=== PATIENT | female | born 1975 | race Caucasian/White ===

== ENCOUNTER 2016-06-26 09:59 | Emergency (ER) | payer MEDICAID ==
[2016-06-26] MEDS ORDERED: methylPREDNISolone SOD SUCC 125 MG/2 ML VIAL IVP ONE (10:10)
[2016-06-26] MEDS ORDERED: FAMOTIDINE 20 MG in NS 100 ML IV ONE (10:10)
--- NOTE | 2016-06-26 11:02 | EDPHY ---
H & P HPI/ROS: CHIEF COMPLAINT: Swelling of the eyes, difficulty swallowing HISTORY OF PRESENT ILLNESS: Patient has had 1 week history of redness of the eyes, watering of the eyes. Symptoms are [id number]. They were persistent. They were improved with claritin and [id number] anti- inflammatories. This change last night as they symptoms began to worsen, and this morning she noted difficulty swallowing. She had no shortness of breath. She noted no swelling of the lips, mouth or tongue. No chest pain or shortness of breath. No rash anywhere on her body. The redness of the eyes has worsened overnight since yesterday. She has no known new contacts or substances. She has been on lisinopril for 6 months without complication. No new soaps, detergents, makeup, or new medications. No other associated complaints or modifying factors. REVIEW OF SYSTEMS: Ten systems reviewed and are negative unless otherwise noted in the HPI PERTINENT MEDICAL HISTORY: EXAMINATION General Appearance: Alert, no distress Head: normocephalic, atraumatic Eyes: Pupils equal and round, no conjunctival pallor or injection. There is erythema surrounding the eyes. Mild edema surrounding the eyes. ENT, Mouth: Mucous membranes moist. Uvula is midline. There is no erythema of the mouth. There is no edema of the posterior pharynx, lips, tongue or floor of the mouth. The airway is widely patent. Neck: Normal inspection, supple, non-tender. No edema. Trachea is midline. Respiratory: Lungs are clear to auscultation. No wheezing, rhonchi or crackles. Cardiovascular: Regular rate and rhythm. No murmur. Pulses intact distally. Gastrointestinal: Abdomen is soft and nontender Back: non-tender, no bony abnormalities Neurological: A&O, nonfocal, normal gait Skin: Warm and dry, no rash Extremities: Nontender, no pedal edema Psychiatric: Mood and affect normal DIFFERENTIAL DIAGNOSES: Including but not limited to acute allergic reaction, allergic rhinitis, anaphylaxis MDM: 10:15 a.m. Likely allergic reaction. The involvement is only the eyes and upper face. Her airway is widely patent. There is no edema of the tongue or lips. She is not hoarse. She is 100% on room air. We have administered Solu-Medrol, Benadryl and Pepcid will monitor her closely. 10:30 a.m. Patient is beginning to improve. She remains awake and alert hemodynamically stable. No change in her airway status. No swelling of the lips or tongue. Continue to monitor closely. 12:00 p.m. Patient is starting to feel better. The edema around the eyes is significantly improved. She still has some erythema about the as that is improved. Still no difficulty breathing or swallowing. Still no swelling of the lips or tongue. Continue to monitor. 1:20 p.m. I have re-evaluated the patient again. The patient is feeling much better. Her eyes have less erythema around them. There is significantly less edema around the eyes. She still has no swelling of the lips or tongue. She still has no difficulty breathing or swelling. She feels "so much better" and is comfortable being discharged home. I will prescribe prednisone, hydroxyzine and Pepcid. She is to take Pepcid for 5 days. She is to take the prednisone for 5 days. She has takes hydroxyzine when she is not driving or work and throughout the rest of today every 6-8 hours. She is comfortable with this plan and discharged home in stable condition with strict return to the emergency department precautions. SUPERVISION: Patient was evaluated in conjunction with the supervising physician. Please see their note for details. Source: Patient Exam Limitations: No limitations - Medical/Surgical History Other PMH: med hx-none. surg-none - Social History Smoking Status: Unknown if ever smoked Constitutional: Initial Vital Signs Temperature (C) 97.7 F 06/26/16 10:20 Heart Rate 56 L 06/26/16 10:20 Respiratory Rate 18 06/26/16 10:20 Blood Pressure 106/82 H 06/26/16 10:20 O2 Sat (%) 99 06/26/16 10:20 O2 Delivery Mode Nasal Cannula Allergies/Adverse Reactions: No Known Allergies Allergy (Verified 06/26/16 10:19) Home Medications: Medication Instructions Recorded Claritin 06/26/16 Famotidine [Pepcid 20 MG (*)] 20 mg PO BID 5 Days 06/26/16 Flonase Nasal [place] 06/26/16 Lisinopril 06/26/16 hydrOXYzine HCL [Hydroxyzine HCl] 50 mg PO Q6-8PRN PRN #20 tablet 06/26/16 predniSONE [Deltasone] 60 mg PO DAILY #15 tablet 06/26/16 Medical Decision Making - Data Points Medications Given: Discontinued Medications Diphenhydramine HCl (Benadryl Injection) 25 mg IVP EDNOW ONE Stop: 06/26/16 10:11 Last Admin: 06/26/16 10:24 Dose: 25 mg Famotidine 20 mg/ Sodium (Chloride) 102 mls @ 408 mls/hr IV EDNOW ONE Stop: 06/26/16 10:24 Last Admin: 06/26/16 10:24 Dose: 102 mls Methylprednisolone Sodium Succinate (Solu-Medrol) 125 mg IVP EDNOW ONE Stop: 06/26/16 10:11 Last Admin: 06/26/16 10:24 Dose: 125 mg Departure - Departure Disposition: Home, Routine, Self-Care Clinical Impression: Periorbital edema Allergic reaction Qualifiers: Encounter type: initial encounter Qualified Code(s): T78.40XA - Allergy, unspecified, initial encounter Condition: Good Instructions: Anaphylaxis (ED), Allergies (ED) Additional Instructions: Continue the medications as prescribed. Return here or call 911 for any return or worsening symptoms. Referrals: Greer Hines MD [Primary Care Provider] - As per Instructions Stand Alone Forms: Work Excuse Prescriptions: Famotidine [Pepcid 20 MG (*)] 20 mg PO BID 5 Days hydrOXYzine HCL [Hydroxyzine HCl] 50 mg PO Q6-8PRN PRN #20 tablet PRN Reason: Itching predniSONE [Deltasone] 60 mg PO DAILY #15 tablet
[2016-06-26 13:33] VITALS: BP 135/68; PULSE 87; RESP 18; TEMP 98.6; O2SAT 97
== END 2016-06-26 13:44 | disposition home or self-care (01) ==
DX: T78.40XA Allergy, unspecified, initial encounter (principal)
CPT/HCPCS: 96365; J1200

== ENCOUNTER 2016-07-05 03:56 | Emergency (ER) | payer MEDICAID ==
[2016-07-05 04:02] VITALS: RESP 16; TEMP 97.3
[2016-07-05] MEDS ORDERED: diphenhydrAMINE 50 MG CAP PO ONE (04:13)
--- NOTE | 2016-07-05 04:16 | EDPHY ---
H & P Stated Complaint: allergic reaction, swelling to eyes Time Seen by Provider: 07/05/16 04:08 HPI/ROS: Chief Complaint: Eye swelling HPI: 40-year-old woman woke this morning with bilateral eye swelling. Patient had a similar episode a week or 2 ago was seen in the emergency department. At that time she is given prednisone and antihistamines. Patient states that the symptoms have gone away. She had stopped using most of her Skin Care products but had been slowly bring him back. She had been doing fine until yesterday morning she used a tinted sunscreen on her face. Patient has used this before but noticed after applying yesterday that she started getting puffiness around her eyes. This continued to progress throughout the day. She woke this morning with bilateral eyes swelling and itching. Slight discharge from both eyes. No vision changes. They are itchy. Denies any shortness of breath. No cough. No neck swelling. She has not taken any medications for this morning. She has a history of multiple environmental allergies. She does not have an digital media sales consultant. ROS: 10 point Review of Systems is negative except as noted in the HPI. PMH: Multiple allergies Social History: No smoking, no alcohol, no recreational drug use Family History: non-contributory Physical Exam: Gen: Awake, Alert, No Distress HEENT: Nose: no rhinorrhea Eyes: PERRLA, EOMI, bilateral periorbital edema with mild erythema consistent with acute allergic reaction. Is symmetrical. She has no pain with extraocular eye movement. No vision changes. No discharge. No conjunctival injection. Mouth: Moist mucosa Neck: Supple, no JVD Neuro: CN II-XII intact, Sensation grossly intact, Strength 5/5 in bilateral upper and lower extremities - Personal History LMP (Females 10-55): 1-7 Days Ago Current Tetanus/Diphtheria Vaccine: Unsure Current Tetanus Diphtheria and Acellular Pertussis (TDAP): Unsure - Medical/Surgical History Hx Asthma: No Hx Chronic Respiratory Disease: No Hx Diabetes: No Hx Cardiac Disease: No Hx Renal Disease: No Hx Cirrhosis: No Hx Alcoholism: No Hx HIV/AIDS: No Hx Splenectomy or Spleen Trauma: No Other PMH: med hx-none. surg-none - Social History Smoking Status: Unknown if ever smoked Constitutional: Initial Vital Signs Temperature (C) 36.3 C 07/05/16 03:57 Heart Rate 67 07/05/16 03:57 Respiratory Rate 16 07/05/16 03:57 Blood Pressure 123/88 H 07/05/16 03:57 O2 Sat (%) 99 07/05/16 03:57 O2 Delivery Mode Room Air Allergies/Adverse Reactions: cat dander Allergy (Verified 07/05/16 04:02) dog dander Allergy (Verified 07/05/16 04:02) formaldehyde Allergy (Verified 07/05/16 04:02) grass pollen Allergy (Verified 07/05/16 04:02) latex Allergy (Verified 07/05/16 04:02) Home Medications: Medication Instructions Recorded Claritin 06/26/16 Famotidine [Pepcid 20 MG (*)] 20 mg PO BID 5 Days 06/26/16 Flonase Nasal [place] 06/26/16 Lisinopril 06/26/16 hydrOXYzine HCL [Hydroxyzine HCl] 50 mg PO Q6-8PRN PRN #20 tablet 06/26/16 predniSONE [Deltasone] 60 mg PO DAILY #15 tablet 06/26/16 predniSONE 60 mg PO DAILY #9 tab 07/05/16 Medical Decision Making - Data Points Medications Given: Discontinued Medications Diphenhydramine HCl (Benadryl) 50 mg PO EDNOW ONE Stop: 07/05/16 04:18 Last Admin: 07/05/16 04:15 Dose: 50 mg Prednisone (Prednisone) 60 mg PO EDNOW ONE Stop: 07/05/16 04:54 Last Admin: 07/05/16 04:52 Dose: 60 mg Departure - Departure Disposition: Home, Routine, Self-Care Clinical Impression: Allergic reaction Condition: Good Instructions: Antihistamine (By mouth), General Allergic Reaction (ED), Conjunctivitis (ED) Additional Instructions: Follow up with primary care physician for referral to an digital media sales consultant. Discontinue all products your using especially the tented sunscreen. May take Benadryl 50 mg every 4 hours as needed for allergy symptoms. Return emergency depart for increasing swelling, difficulty being breathing, fevers, chills, or any other concerns. Referrals: Greer Hines MD [Primary Care Provider] - As per Instructions Prescriptions: predniSONE 60 mg PO DAILY #9 tab
[2016-07-05] MEDS ORDERED: diphenhydrAMINE 25 MG CAP PO ONE (04:17)
[2016-07-05] MEDS ORDERED: predniSONE 20 MG TAB ONE (04:51)
[2016-07-05] MEDS ORDERED: predniSONE 20 MG TAB PO ONE (04:53)
[2016-07-05 05:11] VITALS: BP 131/94; PULSE 54; O2SAT 97
== END 2016-07-05 05:14 | disposition home or self-care (01) ==
DX: L23.2 Allergic contact dermatitis due to cosmetics (principal); Z91.040 Latex allergy status

== ENCOUNTER 2016-07-05 12:14 | Emergency (ER) | payer MEDICAID ==
--- NOTE | 2016-07-05 13:13 | EDPHY ---
H & P Time Seen by Provider: 07/05/16 12:54 HPI/ROS: Chief complaint. Swelling around eyes HPI. 40-year-old female presents emergency department with redness and swelling around both eyes. She was seen in our emergency department on June 26 for similar symptoms. It was felt to be allergic reaction she was treated with prednisone, Vistaril, Pepcid. Symptoms seem to improve. Early this morning she developed similar symptoms and was seen in the emergency department treated with prednisone. She had been taking lisinopril for hypertension she stop the lisinopril though on Sunday she took 5 mg and Sunday 2 and 0.5 mg as her blood pressure was up. She has seen her regular physician and was switched to amlodipine which she has started. She had increased redness around both eyes beginning yesterday. However no eye or visual symptoms. No redness to the eyes and no discharge. She felt her lips were somewhat swollen earlier today but not her tongue or throat pharynx. No shortness of breath. She has been using a sun block around her eyes which she has used for quite some time. She is continuing to use prednisone, Pepcid, hydroxyzine pain and Flonase. She otherwise has no upper respiratory symptoms and no fever. ROS Constitutional. no fever/chills, no weakness Eyes. No problem with vision but redness and swelling around both eyes ENT. no sore throat, no nasal drainage Cardiovascular. no chest pain Respiratory. no shortness of breath, no cough Abdominal. no abdominal pain, no nausea/vomiting, no diarrhea . no problems urinating MS. no calf pain/swelling, no neck/back pain, no joint pain Skin. no rash Lymph. no swollen glands Neuro. no headache, no dizziness, no difficulty walking or with speech Past Medical/Surgical History: Hypertension Social History: Single, nonsmoker, no alcohol Smoking Status: Never smoked Physical Exam: General Appearance: Alert well-developed female mild distress vital signs stable Eyes: Pupils equal and round no pallor or injection. Patient has hussain orbital erythema with a fairly sharp circumscribed edge along both eyes. There is no restriction of gaze. No significant swelling. ENT, Mouth: Mucous membranes are moist. No swelling to tongue or oropharynx Respiratory: There are no retractions, lungs are clear to auscultation. Cardiovascular: Regular rate and rhythm. Gastrointestinal: Abdomen is soft and nontender, no masses, bowel sounds normal. Neurological: Awake and alert, sensory and motor exams grossly normal. Skin: Warm and dry, no rashes. Musculoskeletal: Neck is supple nontender. Extremities symmetrical, full range of motion. Psychiatric: Patient is oriented X 3, there is no agitation. Constitutional: Initial Vital Signs Temperature (C) 36.8 C 07/05/16 12:24 Heart Rate 66 07/05/16 12:24 Respiratory Rate 16 07/05/16 12:24 Blood Pressure 124/76 H 07/05/16 12:24 O2 Sat (%) 95 07/05/16 12:24 O2 Delivery Mode Room Air Allergies/Adverse Reactions: cat dander Allergy (Verified 07/05/16 04:02) dog dander Allergy (Verified 07/05/16 04:02) formaldehyde Allergy (Verified 07/05/16 04:02) grass pollen Allergy (Verified 07/05/16 04:02) latex Allergy (Verified 07/05/16 04:02) lisinopril Allergy (Verified 07/05/16 12:23) Home Medications: Medication Instructions Recorded Claritin 06/26/16 Famotidine [Pepcid 20 MG (*)] 20 mg PO BID 5 Days 06/26/16 Flonase Nasal [place] 06/26/16 hydrOXYzine HCL [Hydroxyzine HCl] 50 mg PO Q6-8PRN PRN #20 tablet 06/26/16 predniSONE [Deltasone] 60 mg PO DAILY #15 tablet 06/26/16 Amlodipine Besylate 07/05/16 Azithromycin [Zithromax] 250 mg PO DAILY #6 tab 07/05/16 predniSONE 60 mg PO DAILY #9 tab 07/05/16 Medical Decision Making ED Course/Re-evaluation: On re-evaluation the patient remained stable. She and I discussed treatment plan including criteria for return importance of follow-up and further evaluation. She expresses understanding and agreement Differential Diagnosis: This certainly may be chemical irritation from some block around her eyes. I am concerned also about erysipelas and will treat the patient with antibiotics. The eyes themselves appear to be normal. I do not think that this is likely secondary to the lisinopril. Blood pressure is well controlled now amlodipine. This could also be allergic reaction. Patient and I discussed further evaluation by Dermatology Departure - Departure Disposition: Home, Routine, Self-Care Clinical Impression: Allergic reaction Qualifiers: Encounter type: subsequent encounter Qualified Code(s): T78.40XD - Allergy, unspecified, subsequent encounter Condition: Good Instructions: Allergies (ED) Additional Instructions: antibiotic ointment twice daily for 3-4 days. continue prednisone. Z pack as antibiotic. stop hydroxyzine while taking the z pack. return for worsening sympotoms. re-check 2 days especially if not improving. Referrals: Greer Hines MD [Primary Care Provider] - As per Instructions Nuzhat Perez MD [Medical Doctor] - 2-3 days, call for appt. Prescriptions: Azithromycin [Zithromax] 250 mg PO DAILY #6 tab
[2016-07-05 14:09] VITALS: BP 123/81; PULSE 67; RESP 20; TEMP 97.9; O2SAT 97
== END 2016-07-05 14:11 | disposition home or self-care (01) ==
DX: T78.40XA Allergy, unspecified, initial encounter (principal); I10 Essential (primary) hypertension; Z91.040 Latex allergy status